=== PATIENT | female | born 1965 | race Caucasian/White ===

== ENCOUNTER 2018-06-02 16:29 | Observation (INO) ==
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
[2018-06-02 17:12] LABS: Basophils # 0.1 K/mcL (0.0-0.2); Basophils % 0.4 %; Eosinophils # 0.1 K/mcL (0.0-0.6); Eosinophils % 0.6 %; Hematocrit 42.9 % (35.3-44.9); Hemoglobin 13.8 g/dL (11.5-15.4); Immature Granulocytes % 0.8 % (0-4); Lymphocytes # 1.6 K/mcL (0.6-4.6); Lymphocytes % 12.6 %; Mean Corpuscular HGB Conc 32.2 g/dL (31.6-35.5); Mean Corpuscular Hemoglobin 27.7 pg (28.0-33.3); Mean Corpuscular Volume 86.1 fL (83.0-100.0); Mean Platelet Volume 9.6 fL (9.4-12.4); Monocytes # 0.7 K/mcL (0.0-1.3); Monocytes % 5.3 %; Neutrophils # 10.1 K/mcL (1.6-8.9); Platelet Count 305 K/mcL (140-400); Red Blood Count 4.98 M/mcL (3.82-4.97); Segmented Neutrophils % 80.3 %
[2018-06-02 17:14] LABS: Bilirubin,Urine Negative (Negative); Blood,Urine Trace-intact (Negative); Clarity,Urine Slightly Cloudy (Clear); Color,Urine Yellow (Yellow); Glucose,Urine (UA) 100 mg/dL (Normal); Ketones,Urine Negative (Negative); Leukocyte Esterase,Urine Trace (Negative); Nitrite,Urine Negative (Negative); Protein,Urine >=300 mg/dL (Neg-Trace); Specific Gravity,Urine 1.025 (1.010-1.025); Urobilinogen,Urine Normal (Normal)
[2018-06-02 17:20] LABS: Prothrombin Time 10.7 Seconds (9.4-12.1)
[2018-06-02 17:22] LABS: Activated Partial Thrombo Time 32.1 Seconds (26.0-36.0)
[2018-06-02 17:26] LABS: Amphetamine Screen,Urine Negative ng/mL (Cutoff=1000); Barbiturate Screen,Urine Negative ng/mL (Cutoff=200); Benzodiazepines Screen,Urine Positive ng/mL (Cutoff=200); Cannabinoid Screen,Urine Negative ng/mL (Cutoff = 50); Cocaine Screen,Urine Negative ng/mL (Cutoff= 300); Opiate Screen,Urine Positive ng/mL (Cutoff=300); Phencyclidine Screen,Urine Negative ng/mL (Cutoff=25)
[2018-06-02 17:28] LABS: Acetaminophen < 10 mcg/mL (10-20); Alanine Aminotransferase 25 Units/L (7-52); Albumin 3.4 g/dL (3.5-5.7); Alkaline Phosphatase 119 Units/L (34-104); Aspartate Amino Transferase 33 Units/L (13-39); BUN/Creatinine Ratio 30 (6-26); Bilirubin,Total 0.2 mg/dL (0.3-1.0); Blood Urea Nitrogen 16 mg/dL (6-20); Calcium 8.5 mg/dL (8.6-10.3); Carbon Dioxide 24 mEq/L (23-29); Chloride 101 mEq/L (98-107); Ethanol < 10 mg/dL (Less than 10); Globulin 3.4 g/dL (2.4-3.5); Glucose 196 mg/dL (70-105); Granular Casts,Urine Moderate per lpf (None Seen); Hyaline Casts,Urine Few per lpf (None-Few); Osmolality,Calculated 281 (280-300); Potassium 3.9 mEq/L (3.5-5.1); Salicylate < 2.5 mg/dL (15.0-30.0); Sodium 132 mEq/L (136-145); Total Protein 6.8 g/dL (6.4-8.9); eGFR For Non-African Americans > 60 (> 60)
[2018-06-02 17:30] LABS: Bacteria,Urine Moderate per hpf (None-Few); RBC,Urine 0-3 per hpf (0-3); Squamous Epithelial Cell,Urine Few per lpf (None-Few); WBC,Urine 30-50 per hpf (0-3)
[2018-06-02] MEDS ORDERED: Ondansetron 4 MG/2 ML VIAL IVP PRN (17:55)
[2018-06-02] MEDS ORDERED: Albuterol 2.5 MG/3 ML NEBULIZER IH PRN (17:55)
[2018-06-02] MEDS ORDERED: Naloxone 0.4 MG/ML INJ IVP PRN (17:55)
[2018-06-02] MEDS ORDERED: *HR* EPINEPHrine 1 MG/ML AMPUL IM PRN (17:55)
[2018-06-02] MEDS ORDERED: Nystatin POWDER 30 GM BOTTLE TP PRN (17:55)
[2018-06-03] MEDS: Sulfamethoxazole/Trimeth DS 1 EACH TABLET PO SCH ×2 (01:00→07:51)
[2018-06-03] MEDS: ALPRAZolam 1 MG TABLET PO SCH ×3 (01:00→13:16)
[2018-06-03] MEDS: Baclofen 10 MG TABLET PO SCH ×2 (01:00→07:50)
[2018-06-03] MEDS: hydrALAZINE 25 MG TABLET PO SCH ×2 (01:00→07:49)
[2018-06-03 06:21] VITALS: BP 99/61
[2018-06-03] MEDS ORDERED: Folic Acid 1 MG TABLET PO SCH (09:00)
[2018-06-03] MEDS ORDERED: Cholecalciferol (D-3) 1,000 UNIT TABLET PO SCH (09:00)
[2018-06-03] MEDS ORDERED: Aspirin 325 MG TABLET PO SCH (09:00)
[2018-06-03] MEDS ORDERED: Loratadine 10 MG TABLET PO SCH (09:00)
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
--- NOTE | 2018-06-03 10:13 | Discharge Summary ---
Orders not resulted at time of discharge: Pending orders 06/02/18 17:02 ECG 12 lead ECG [ECG] Stat 06/02/18 17:07 Culture,Urine [RM] Stat Date of Encounter: 06/03/18 Time of Encounter: 09:25 - Discharge Diagnosis (1) Altered mental status Priority: Primary Status: Resolved Qualifiers: Altered mental status type: unspecified Qualified Code(s): R41.82 - Altered mental status, unspecified Hospital course: Ms. Palencia is a 52 year old female who came to emergency room after she states she took a "headache pill" (name unknown) at home and developed mental status changes. She does not recall the incident well. Emergency room report states she required bagging. She was evaluated emergency room and was felt deserve admission to [facility] for observation ongoing care needs. Initial orders were written by the emergency room physician. I saw her the morning of June 03 and performed a history physical and discharge. When I saw her she stated she felt back to her baseline and wished to be discharged home. She reported the remaining medication possibly causing her mental status change had been discarded by her . She will follow with her PCP Karey Gomez CNP within 1 week. - Time Spent with Patient Total time spent providing and/or coordinating discharge services: - Discharge Medications Prescriptions: Continue Aspirin 325 mg PO DAILY tablet DULoxetine [Cymbalta] 60 mg PO DAILY capsule. Folic Acid 1 mg PO DAILY Loratadine [Claritin] 10 mg PO DAILY Levothyroxine [Synthroid] 125 mcg PO QAM Ondansetron [Zofran] 4 mg PO DAILY PRN PRN Reason: Nausea Docusate [Colace] 100 mg PO DAILY OxyCODONE/APAP 10/325 [Percocet 10/325 MG] 1 tab PO Q6HR PRN PRN Reason: Severe Pain Oxygen 2 - 2.5 l NS AD Albuterol Neb [Proventil Neb] 2.5 mg IH Q4HR PRN PRN Reason: Wheezing Nystatin POWDER [Nystop] 1 appl TP BID PRN PRN Reason: Rash Ferrous Sulfate [Iron] 325 mg PO DAILY Albuterol Sulfate [Albuterol Inhaler] 2 puff IH Q4HR PRN PRN Reason: Shortness Of Breath ALPRAZolam [Xanax 1 MG Tablet] 1 mg PO QID Omeprazole [PriLOSEC] 20 mg PO DAILY Baclofen [Lioresal] 10 mg PO TID Paroxetine HCl [Paxil] 10 mg PO DAILY Meclizine HCl [Verticalm] 25 mg PO BID PRN PRN Reason: Dizziness EPINEPHrine [Epipen] 0.3 mg IM ONCE PRN PRN Reason: Anaphylaxis hydrALAZINE [HydrALAZINE] 25 mg PO BID Metoprolol [Lopressor] 25 mg PO BID #14 tablet Cholecalciferol (Vitamin D3) [Vitamin D3] 2,000 unit PO DAILY Phenazopyridine HCl [Pyridium] 200 mg PO TIDAC #10 tab Sulfamethoxazole/Trimeth DS [Bactrim Ds] 1 each PO BID #20 tablet Ondansetron ODT [Zofran ODT] 4 mg SL Q6HR #10 tab.rapdis Home Medications: Cholecalciferol (Vitamin D3) [Vitamin D3] 2,000 unit PO DAILY 01/24/15 [History] Aspirin 325 mg PO DAILY tablet 03/06/15 [Rx] DULoxetine [Cymbalta] 60 mg PO DAILY capsule. 03/06/15 [Rx] Folic Acid 1 mg PO DAILY 05/30/15 [History] Levothyroxine [Synthroid] 125 mcg PO QAM 05/30/15 [History] Loratadine [Claritin] 10 mg PO DAILY 05/30/15 [History] Ondansetron [Zofran] 4 mg PO DAILY PRN 05/30/15 [History] Docusate [Colace] 100 mg PO DAILY 08/29/15 [History] OxyCODONE/APAP 10/325 [Percocet 10/325 MG] 1 tab PO Q6HR PRN 04/29/16 [History] Oxygen 2 - 2.5 l NS AD 04/30/16 [History] Albuterol Neb [Proventil Neb] 2.5 mg IH Q4HR PRN 06/18/16 [History] Ferrous Sulfate [Iron] 325 mg PO DAILY 08/27/16 [History] Nystatin POWDER [Nystop] 1 appl TP BID PRN 08/27/16 [History] Albuterol Sulfate [Albuterol Inhaler] 2 puff IH Q4HR PRN 12/24/16 [History] ALPRAZolam [Xanax 1 MG Tablet] 1 mg PO QID 04/22/17 [History] Baclofen [Lioresal] 10 mg PO TID 05/28/17 [History] EPINEPHrine [Epipen] 0.3 mg IM ONCE PRN 05/28/17 [History] Meclizine HCl [Verticalm] 25 mg PO BID PRN 05/28/17 [History] Omeprazole [PriLOSEC] 20 mg PO DAILY 05/28/17 [History] Paroxetine HCl [Paxil] 10 mg PO DAILY 05/28/17 [History] hydrALAZINE [HydrALAZINE] 25 mg PO BID 07/29/17 [History] Metoprolol [Lopressor] 25 mg PO BID #14 tablet 08/18/17 [Rx] Ondansetron ODT [Zofran ODT] 4 mg SL Q6HR #10 tab.rapdis 05/20/18 [Rx] Phenazopyridine HCl [Pyridium] 200 mg PO TIDAC #10 tab 05/20/18 [Rx] Sulfamethoxazole/Trimeth DS [Bactrim Ds] 1 each PO BID #20 tablet 05/20/18 [Rx] Allergies/Adverse Reactions: Allergy/AdvReac Type Severity Reaction Status Date / Time Amoxicillin [From Augmentin] Allergy Hives Verified 05/22/18 15:49 cilastatin [From Primaxin] Allergy Anaphylaxis Verified 05/22/18 15:49 ciprofloxacin Allergy Hives Verified 05/22/18 15:49 clavulanic acid Allergy Hives Verified 05/22/18 15:49 [From Augmentin] doxycycline Allergy Hives Verified 05/22/18 15:49 imipenem Allergy Rash Verified 05/22/18 15:49 ketorolac [From Toradol] Allergy Nausea Verified 05/22/18 15:49 levofloxacin Allergy Anaphylaxis Verified 05/22/18 15:49 metronidazole [From Flagyl] Allergy Hives Verified 05/22/18 15:49 morphine Allergy Hives Verified 05/22/18 15:49 naproxen Allergy Hives Verified 05/22/18 15:49 nitrofurantoin Allergy Hives Verified 05/22/18 15:49 piperacillin [From Zosyn] Allergy Rash Verified 05/22/18 15:49 tazobactam Allergy Irritable Verified 05/22/18 15:49 Ticarcillin Allergy Hives Verified 05/22/18 15:49 tramadol Allergy Vomiting Verified 05/22/18 15:49 vancomycin Allergy Hives Verified 05/22/18 15:49 cefepime AdvReac Intermediate Itching Verified 05/22/18 15:49 baclofen AdvReac Itching Verified 05/22/18 15:49 methylprednisolone AdvReac Rash Verified 05/22/18 15:49 [From Solu-Medrol] Date of admission: 06/02/18 17:53 Primary care physician: Karey Gomez CNP - Constitutional Vitals: Temp Pulse Resp BP Pulse Ox 98.3 F 66 18 99/61 96 06/03/18 06:18 06/03/18 06:18 06/03/18 06:18 06/03/18 06:18 06/03/18 06:18 - Patient Status Disposition: Home, Self-Care - Discharge Instructions Follow Up With: Karey Gomez CNP [Primary Care Provider] - 1 week - Diet and Activity Activity: resume usual activities as tolerated Diet: advance to your usual diet
--- NOTE | 2018-06-03 17:24 | Electrocardiograph Report ---
[place] [id number] Test Date: 2018-06-02 Pat Name: Monisha Palencia Department: EDP-16 Room: [facility] Gender: F [employer]: : [id number] Requested By: Rocío Moreno Order Number: [id number] Reading MD: Nhung Fu Measurements Intervals [place] Rate: 90 P: 57 TN: 206 QRS: 42 QRSD: 94 T: 48 QT: 374 QTc: 458 Interpretive Statements Sinus rhythm Borderline prolonged TN interval Probable left atrial enlargement Electronically Signed On 06-03-2018 17:23:19 EDT by Nhung Fu
== END 2018-06-03 14:20 | disposition home or self-care (01) ==
LOC: INPPIK 16:29 → EMEROOPIK 16:29 → INPPIK 18:25
PROVIDERS: ADMIT Internal Medicine; ATTEND Internal Medicine

== ENCOUNTER 2019-01-31 11:38 | Observation (INO) ==
[2019-01-31] MEDS ORDERED: 0.9 % Sodium Chloride 1,000 ML IVC ONE (12:07)
[2019-01-31 12:20] LABS: Bilirubin,Urine Negative (Negative); Blood,Urine Trace-intact (Negative); Clarity,Urine Turbid (Clear); Color,Urine Yellow (Yellow); Glucose,Urine (UA) Normal (Normal); Ketones,Urine Negative (Negative); Leukocyte Esterase,Urine Large (Negative); Nitrite,Urine Positive (Negative); PH,Urine >=9.0 pH Units (5.0-8.0); Protein,Urine Trace mg/dL (Neg-Trace); Urobilinogen,Urine Normal (Normal)
[2019-01-31 12:28] LABS: Bacteria,Urine Many per hpf (None-Few); Mucus,Urine Few (Few); RBC,Urine 0-3 per hpf (0-3); Squamous Epithelial Cell,Urine Few per lpf (None-Few); Triple Phosphate Crystal,Urine Present; WBC,Urine 30-50 per hpf (0-3)
[2019-01-31 12:32] LABS: Basophils # 0.1 K/mcL (0.0-0.2); Basophils % 0.6 %; Eosinophils # 0.1 K/mcL (0.0-0.6); Eosinophils % 0.7 %; Hematocrit 42.3 % (35.3-44.9); Hemoglobin 13.8 g/dL (11.5-15.4); Immature Granulocytes % 0.6 % (0-4); Lymphocytes % 19.9 %; Mean Corpuscular HGB Conc 32.6 g/dL (31.6-35.5); Mean Corpuscular Hemoglobin 28.6 pg (28.0-33.3); Mean Corpuscular Volume 87.6 fL (83.0-100.0); Mean Platelet Volume 9.5 fL (9.4-12.4); Monocytes # 0.6 K/mcL (0.0-1.3); Monocytes % 5.5 %; Neutrophils # 7.3 K/mcL (1.6-8.9); Nucleated Red Blood Cells 0.3 /100 WBC (0); Platelet Count 275 K/mcL (140-400); Red Blood Count 4.83 M/mcL (3.82-4.97); Red Cell Distribution Width 14.3 % (11.5-14.5); Segmented Neutrophils % 72.7 %; White Blood Count 10.1 K/mcL (4.3-11.1)
[2019-01-31 12:39] LABS: Prothrombin Time 11.4 Seconds (9.4-12.1)
[2019-01-31 12:51] LABS: Troponin I < 0.03 ng/mL (< 0.04)
[2019-01-31 12:52] LABS: Alanine Aminotransferase 8 Units/L (7-52); Albumin 3.7 g/dL (3.5-5.7); Albumin/Globulin Ratio 1.1 (1.1-2.2); Alkaline Phosphatase 99 Units/L (34-104); Aspartate Amino Transferase 8 Units/L (13-39); BUN/Creatinine Ratio 24 (6-26); Bilirubin,Indirect 0.2 mg/dL (0.0-1.0); Bilirubin,Total 0.2 mg/dL (0.3-1.0); Blood Urea Nitrogen 12 mg/dL (6-20); Calcium 8.9 mg/dL (8.6-10.3); Carbon Dioxide 31 mEq/L (23-29); Chloride 97 mEq/L (98-107); Globulin 3.4 g/dL (2.4-3.5); Glucose 121 mg/dL (70-105); Osmolality,Calculated 275 (280-300); Potassium 4.4 mEq/L (3.5-5.1); Sodium 132 mEq/L (136-145); Total Protein 7.1 g/dL (6.4-8.9); eGFR For African Americans > 60 (> 60); eGFR For Non-African Americans > 60 (> 60)
[2019-01-31 13:04] LABS: Lipase 10 Units/L (11-82)
[2019-01-31] MEDS ORDERED: Albuterol 2.5 MG/3 ML NEBULIZER IH PRN (14:07)
[2019-01-31] MEDS ORDERED: Ondansetron 4 MG/2 ML VIAL IVP PRN (14:07)
[2019-01-31] MEDS ORDERED: Naloxone 0.4 MG/ML INJ IVP PRN (14:07)
[2019-01-31] MEDS: 0.9 % Sodium Chloride 1,000 ML IVC SCH (15:52)
[2019-01-31] MEDS: *HR* OxyCODONE/APAP 10/325 TABLET PO PRN ×2 (15:57→21:24)
[2019-01-31] MEDS: ALPRAZolam 1 MG TABLET PO SCH ×2 (17:13→20:45)
[2019-01-31] MEDS: hydrALAZINE 25 MG TABLET PO SCH (20:46)
[2019-01-31] MEDS: Nystatin Cream 15 GM TUBE TP SCH (20:46)
[2019-02-01] MEDS: 0.9 % Sodium Chloride 1,000 ML IVC SCH (01:41)
[2019-02-01] MEDS ORDERED: *HR* OxyCODONE/APAP 10/325 TABLET PO SCH (01:45)
[2019-02-01] MEDS: *HR* OxyCODONE/APAP 10/325 TABLET PO PRN ×2 (02:37→06:26)
[2019-02-01 07:42] LABS: Hematocrit 40.9 % (35.3-44.9); Hemoglobin 13.3 g/dL (11.5-15.4); Mean Corpuscular HGB Conc 32.5 g/dL (31.6-35.5); Mean Corpuscular Hemoglobin 28.7 pg (28.0-33.3); Mean Corpuscular Volume 88.3 fL (83.0-100.0); Mean Platelet Volume 9.4 fL (9.4-12.4); Platelet Count 253 K/mcL (140-400); Red Blood Count 4.63 M/mcL (3.82-4.97); Red Cell Distribution Width 14.7 % (11.5-14.5); White Blood Count 7.9 K/mcL (4.3-11.1)
[2019-02-01 07:53] LABS: BUN/Creatinine Ratio 20 (6-26); Blood Urea Nitrogen 8 mg/dL (6-20); Calcium 8.7 mg/dL (8.6-10.3); Carbon Dioxide 30 mEq/L (23-29); Chloride 101 mEq/L (98-107); Glucose 87 mg/dL (70-105); Osmolality,Calculated 278 (280-300); Sodium 135 mEq/L (136-145); eGFR For African Americans > 60 (> 60); eGFR For Non-African Americans > 60 (> 60)
[2019-02-01] MEDS: hydrALAZINE 25 MG TABLET PO SCH (08:29)
[2019-02-01] MEDS: ALPRAZolam 1 MG TABLET PO SCH (08:29)
[2019-02-01] MEDS: Nystatin Cream 15 GM TUBE TP SCH ×2 (08:35→08:46)
[2019-02-01] MEDS ORDERED: Loratadine 10 MG TABLET PO SCH (09:00)
[2019-02-01] MEDS ORDERED: cefTRIAXone 1,000 MG in 0.9 % Sodium Chloride Mini Bag 100 ML IVPB SCH (09:00)
[2019-02-01] MEDS ORDERED: Aspirin 325 MG TABLET PO SCH (09:00)
[2019-02-01] MEDS ORDERED: Folic Acid 1 MG TABLET PO SCH (09:00)
[2019-02-01 10:41] VITALS: BP 142/80
[2019-02-01 19:08] LABS: Acinetobacter baumannii by PCR Not Detected (Not Detect); Candida albicans by PCR Not Detected (Not Detect); Candida glabrata by PCR Not Detected (Not Detect); Candida krusei by PCR Not Detected (Not Detect); Candida parapsilosis by PCR Not Detected (Not Detect); Candida tropicalis by PCR Not Detected (Not Detect); Enterobacter cloacae Cmplx PCR Not Detected (Not Detect); Enterobacteriaceae by PCR Not Detected (Not Detect); Enterococcus by PCR Not Detected (Not Detect); Escherichia coli by PCR Not Detected (Not Detect); Klebsiella oxytoca by PCR Not Detected (Not Detect); Klebsiella pneumoniae by PCR Not Detected (Not Detect); Proteus by PCR Not Detected (Not Detect); Pseudomonas aeruginosa by PCR Not Detected (Not Detect); Serratia marcescens by PCR Not Detected (Not Detect); Staphylococcus aureus by PCR Not Detected (Not Detect); Staphylococcus by PCR DETECTED (Not Detect); Streptococcus agalactiae(B)PCR Not Detected (Not Detect); Streptococcus by PCR Not Detected (Not Detect); Streptococcus pneumoniae PCR Not Detected (Not Detect); Streptococcus pyogenes (A) PCR Not Detected (Not Detect); mecA Methicillin-Resist Gene DETECTED (Not Detect)
== END 2019-02-01 11:30 | disposition home or self-care (01) ==
LOC: INPPIK 11:38 → EMEROOPIK 11:38 → INPPIK 14:35
PROVIDERS: ADMIT Internal Medicine; ATTEND Internal Medicine

== ENCOUNTER 2020-04-16 18:27 | Observation (INO) ==
[2020-04-16] MEDS ORDERED: *HR* Promethazine 25 MG/ML VIAL IM ONE (18:52)
[2020-04-16] MEDS ORDERED: *HR* LORazepam 2 MG/ML VIAL IM STA (18:52)
[2020-04-16 19:16] LABS: Basophils # 0.1 K/mcL (0.0-0.2); Basophils % 0.5 %; Eosinophils # 0.1 K/mcL (0.0-0.6); Eosinophils % 0.3 %; Immature Granulocytes % 1.6 % (0-4); Lymphocytes # 2.9 K/mcL (0.6-4.6); Lymphocytes % 16.5 %; Mean Corpuscular HGB Conc 31.3 g/dL (31.6-35.5); Mean Corpuscular Hemoglobin 22.3 pg (28.0-33.3); Mean Corpuscular Volume 71.3 fL (83.0-100.0); Mean Platelet Volume 8.4 fL (9.4-12.4); Monocytes % 5.5 %; Platelet Count 1077 K/mcL (140-400); Red Blood Count 4.49 M/mcL (3.82-4.97); Red Cell Distribution Width 17.6 % (11.5-14.5); Segmented Neutrophils % 75.6 %; White Blood Count 17.8 K/mcL (4.3-11.1)
[2020-04-16 19:19] LABS: Neutrophils # 13.5 K/mcL (1.6-8.9)
[2020-04-16 19:36] LABS: Bilirubin,Urine Negative (Negative); Blood,Urine Negative (Negative); Color,Urine Yellow (Yellow); Glucose,Urine (UA) Normal (Normal); Ketones,Urine Negative (Negative); Leukocyte Esterase,Urine Trace (Negative); Nitrite,Urine Positive (Negative); PH,Urine 6.5 pH Units (5.0-8.0); Protein,Urine Negative (Neg-Trace); Specific Gravity,Urine 1.015 (1.010-1.025); Urobilinogen,Urine Normal (Normal)
[2020-04-16 19:40] LABS: Alanine Aminotransferase 16 Units/L (7-52); Albumin 3.2 g/dL (3.5-5.7); Albumin/Globulin Ratio 0.7 (1.1-2.2); Alkaline Phosphatase 223 Units/L (34-104); Aspartate Amino Transferase 21 Units/L (13-39); BUN/Creatinine Ratio 37 (6-26); Bilirubin,Total 0.2 mg/dL (0.3-1.0); Blood Urea Nitrogen 19 mg/dL (6-20); Calcium 8.7 mg/dL (8.6-10.3); Carbon Dioxide 23 mEq/L (23-29); Chloride 89 mEq/L (98-107); Globulin 4.5 g/dL (2.4-3.5); Glucose 141 mg/dL (70-105); Osmolality,Calculated 259 (280-300); Potassium 4.5 mEq/L (3.5-5.1); Sodium 122 mEq/L (136-145); Total Protein 7.7 g/dL (6.4-8.9); eGFR For African Americans > 60 (> 60); eGFR For Non-African Americans > 60 (> 60)
[2020-04-16 19:41] LABS: Clarity,Urine Slightly Cloudy (Clear)
[2020-04-16 19:48] LABS: Bacteria,Urine Many per hpf (None-Few); Squamous Epithelial Cell,Urine Few per hpf (None-Few)
[2020-04-16 19:49] LABS: RBC,Urine 0-3 per hpf (0-3); Transitional Epi Cells,Urine Few per hpf (None-Few)
[2020-04-16] MEDS ORDERED: 0.9 % Sodium Chloride 1,000 ML IVC SCH ×2 (20:45→23:06)
[2020-04-16] MEDS ORDERED: cefTRIAXone 1,000 MG in 0.9 % Sodium Chloride Mini Bag 100 ML IVPB ONE (21:02)
[2020-04-16] MEDS ORDERED: Acetaminophen/Butalbital/CaffeineTABLET PO PRN (23:06)
[2020-04-16] MEDS ORDERED: Naloxone 0.4 MG/ML INJ IVP PRN (23:06)
[2020-04-16] MEDS ORDERED: Nystatin POWDER 30 GM BOTTLE TP PRN (23:06)
[2020-04-16] MEDS ORDERED: Ondansetron ODT 4 MG TAB.RAPDIS PO PRN (23:06)
[2020-04-16] MEDS ORDERED: hydrALAZINE 25 MG TABLET PO PRN (23:06)
[2020-04-16] MEDS ORDERED: Albuterol 2.5 MG/3 ML NEBULIZER IH PRN (23:06)
[2020-04-17] MEDS: *HR* OxyCODONE/APAP 10/325 TABLET PO PRN ×2 (00:15→06:17)
[2020-04-17 02:25] LABS: Basophils # 0.1 K/mcL (0.0-0.2); Basophils % 0.5 %; Eosinophils # 0.1 K/mcL (0.0-0.6); Eosinophils % 0.6 %; Hematocrit 34.3 % (35.3-44.9); Hemoglobin 10.9 g/dL (11.5-15.4); Immature Granulocytes % 2.1 % (0-4); Lymphocytes # 4.3 K/mcL (0.6-4.6); Lymphocytes % 28.6 %; Mean Corpuscular HGB Conc 31.8 g/dL (31.6-35.5); Mean Corpuscular Hemoglobin 22.9 pg (28.0-33.3); Mean Corpuscular Volume 72.1 fL (83.0-100.0); Mean Platelet Volume 8.5 fL (9.4-12.4); Monocytes % 6.5 %; Neutrophils # 9.2 K/mcL (1.6-8.9); Platelet Count 1086 K/mcL (140-400); Red Blood Count 4.76 M/mcL (3.82-4.97); Red Cell Distribution Width 17.8 % (11.5-14.5); Segmented Neutrophils % 61.7 %; White Blood Count 14.9 K/mcL (4.3-11.1)
[2020-04-17] MEDS ORDERED: ALPRAZolam 1 MG TABLET PO ONE (02:27)
[2020-04-17 02:44] LABS: BUN/Creatinine Ratio 29 (6-26); Blood Urea Nitrogen 17 mg/dL (6-20); Calcium 9.2 mg/dL (8.6-10.3); Carbon Dioxide 25 mEq/L (23-29); Chloride 93 mEq/L (98-107); Glucose 141 mg/dL (70-105); Magnesium 1.8 mg/dL (1.6-2.6); Osmolality,Calculated 272 (280-300); Phosphorous 4.4 mg/dL (2.7-4.5); Potassium 4.1 mEq/L (3.5-5.1); Sodium 129 mEq/L (136-145); eGFR For African Americans > 60 (> 60); eGFR For Non-African Americans > 60 (> 60)
[2020-04-17] MEDS ORDERED: Furosemide 40 MG TABLET PO SCH (08:00)
[2020-04-17] MEDS ORDERED: Piperacillin/Tazobactam 3.375 GM in 0.9 % Sodium Chloride Mini Bag 100 ML IVPB SCH (08:10)
[2020-04-17] MEDS ORDERED: 0.9 % Sodium Chloride 1,000 ML IV ONE (08:49)
[2020-04-17] MEDS ORDERED: Loratadine 10 MG TABLET PO SCH (09:00)
[2020-04-17] MEDS ORDERED: ALPRAZolam 1 MG TABLET PO SCH (09:00)
[2020-04-17] MEDS ORDERED: Aspirin 325 MG TABLET PO SCH (09:00)
[2020-04-17] MEDS ORDERED: PARoxetine 20 MG TABLET PO SCH (09:00)
[2020-04-17] MEDS ORDERED: Lactobacillus 1 EACH CAP.SPRINK PO SCH (09:00)
[2020-04-17] MEDS ORDERED: predniSONE 20 MG TABLET PO SCH (09:00)
[2020-04-17] MEDS ORDERED: Norepinephrine 4 MG in D5% in Water 250 ML IVC SCH (10:00)
[2020-04-17 12:01] VITALS: BP 94/49
== END 2020-04-17 12:05 | disposition short-term general hospital (02) ==
LOC: EMEROOPIK 18:27 → INPPIK 18:27 → SUATTDRO 21:22 → INPPIK 22:45
PROVIDERS: ADMIT Emergency Medicine; ATTEND Family Medicine

== ENCOUNTER 2020-08-27 15:36 | Observation (INO) ==
[2020-08-27] MEDS ORDERED: Ondansetron ODT 4 MG TAB.RAPDIS SL ONE (15:53)
[2020-08-27] MEDS: *HR* OxyCODONE/APAP 5/325 TABLET PO ONE (16:02)
[2020-08-27 16:09] LABS: Basophils # 0.1 K/mcL (0.0-0.2); Basophils % 0.6 %; Eosinophils # 0.3 K/mcL (0.0-0.6); Eosinophils % 1.6 %; Hematocrit 41.5 % (35.3-44.9); Hemoglobin 13.8 g/dL (11.5-15.4); Lymphocytes # 3.7 K/mcL (0.6-4.6); Lymphocytes % 20.4 %; Mean Corpuscular HGB Conc 33.3 g/dL (31.6-35.5); Mean Corpuscular Hemoglobin 25.4 pg (28.0-33.3); Mean Corpuscular Volume 76.3 fL (83.0-100.0); Mean Platelet Volume 8.6 fL (9.4-12.4); Monocytes # 0.8 K/mcL (0.0-1.3); Monocytes % 4.6 %; Neutrophils # 12.6 K/mcL (1.6-8.9); Platelet Count 500 K/mcL (140-400); Red Blood Count 5.44 M/mcL (3.82-4.97); Red Cell Distribution Width 16.2 % (11.5-14.5); Segmented Neutrophils % 69.8 %; White Blood Count 18.1 K/mcL (4.3-11.1)
[2020-08-27 16:26] LABS: BUN/Creatinine Ratio 46 (6-26); Blood Urea Nitrogen 26 mg/dL (6-20); Calcium 8.9 mg/dL (8.6-10.3); Carbon Dioxide 28 mEq/L (23-29); Chloride 88 mEq/L (98-107); Glucose 95 mg/dL (70-105); Osmolality,Calculated 265 (280-300); Potassium 4.5 mEq/L (3.5-5.1); Sodium 125 mEq/L (136-145); eGFR For African Americans > 60 (> 60); eGFR For Non-African Americans > 60 (> 60)
[2020-08-27] MEDS ORDERED: 0.9 % Sodium Chloride 500 ML IVC ONE (16:44)
[2020-08-27] MEDS ORDERED: Ipratropium/Albuterol Neb 3 ML IH ONE (16:59)
[2020-08-27] MEDS: 0.9 % Sodium Chloride 1,000 ML IVC SCH (17:43)
[2020-08-27] MEDS ORDERED: Mag Hydrox/Al Hydrox/Simeth 30 ML UDC PO PRN (17:48)
[2020-08-27] MEDS ORDERED: Acetaminophen 325 MG TABLET PO PRN (17:48)
[2020-08-27] MEDS ORDERED: Naloxone 0.4 MG/ML INJ IVP PRN (17:48)
[2020-08-27] MEDS ORDERED: MOM Conc 10 ML UD.LIQ PO PRN (17:48)
[2020-08-27] MEDS ORDERED: *HR* LORazepam 1 MG TABLET PO PRN (17:53)
[2020-08-27] MEDS ORDERED: Fosfomycin Tromethamine 3 GM Packet PO SCH (18:00)
[2020-08-27] MEDS: Ondansetron 4 MG/2 ML VIAL IVP PRN (18:33)
[2020-08-27] MEDS: Ketorolac 15 MG/ML VIAL IVP PRN (18:40)
[2020-08-27] MEDS ORDERED: *HR* LORazepam 1 MG TABLET PO SCH (19:00)
[2020-08-27 20:48] LABS: Bilirubin,Urine Negative (Negative); Blood,Urine Negative (Negative); Clarity,Urine Clear (Clear); Glucose,Urine (UA) Normal (Normal); Ketones,Urine Negative (Negative); Leukocyte Esterase,Urine Negative (Negative); Nitrite,Urine Negative (Negative); Protein,Urine Negative (Neg-Trace); Specific Gravity,Urine <= 1.005 (1.010-1.025); Urobilinogen,Urine Normal (Normal)
[2020-08-27 21:26] LABS: Color,Urine Light Yellow (Yellow)
[2020-08-27] MEDS: Ipratropium/Albuterol Neb 3 ML IH PRN (21:46)
[2020-08-28] MEDS: 0.9 % Sodium Chloride 1,000 ML IVC SCH (01:01)
[2020-08-28] MEDS: Ketorolac 15 MG/ML VIAL IVP PRN ×3 (01:05→14:08)
[2020-08-28] MEDS: Ondansetron 4 MG/2 ML VIAL IVP PRN ×2 (02:58→12:38)
[2020-08-28] MEDS: Ipratropium/Albuterol Neb 3 ML IH PRN ×3 (03:11→12:08)
[2020-08-28 07:34] LABS: Basophils # 0.1 K/mcL (0.0-0.2); Basophils % 0.9 %; Eosinophils # 0.3 K/mcL (0.0-0.6); Hematocrit 37.9 % (35.3-44.9); Hemoglobin 12.2 g/dL (11.5-15.4); Immature Granulocytes % 3.8 % (0-4); Lymphocytes # 3.4 K/mcL (0.6-4.6); Lymphocytes % 24.5 %; Mean Corpuscular HGB Conc 32.2 g/dL (31.6-35.5); Mean Corpuscular Hemoglobin 24.9 pg (28.0-33.3); Mean Corpuscular Volume 77.3 fL (83.0-100.0); Monocytes # 0.7 K/mcL (0.0-1.3); Monocytes % 5.3 %; Neutrophils # 8.7 K/mcL (1.6-8.9); Platelet Count 434 K/mcL (140-400); Red Cell Distribution Width 16.5 % (11.5-14.5); Segmented Neutrophils % 63.5 %; White Blood Count 13.7 K/mcL (4.3-11.1)
[2020-08-28 07:54] LABS: BUN/Creatinine Ratio 41 (6-26); Blood Urea Nitrogen 25 mg/dL (6-20); Calcium 8.4 mg/dL (8.6-10.3); Carbon Dioxide 26 mEq/L (23-29); Chloride 95 mEq/L (98-107); Glucose 114 mg/dL (70-105); Osmolality,Calculated 273 (280-300); Potassium 3.7 mEq/L (3.5-5.1); Sodium 129 mEq/L (136-145); eGFR For African Americans > 60 (> 60); eGFR For Non-African Americans > 60 (> 60)
[2020-08-28] MEDS ORDERED: *HR* LORazepam 1 MG TABLET PO SCH (08:00)
[2020-08-28] MEDS ORDERED: PARoxetine 20 MG TABLET PO SCH (09:00)
[2020-08-28] MEDS ORDERED: Aspirin 325 MG TABLET PO SCH (09:00)
[2020-08-28] MEDS ORDERED: MAGNESIUM OXIDE PO SCH (09:00)
[2020-08-28] MEDS ORDERED: Folic Acid 1 MG TABLET PO SCH (09:00)
[2020-08-28] MEDS ORDERED: CALCIUM CARBONATE PO SCH (09:00)
[2020-08-28] MEDS ORDERED: Fluticasone Propionate Nasal 50 MCG/SPRAY BOTTLE NS SCH (09:00)
[2020-08-28] MEDS ORDERED: ZINC SULFATE PO SCH (09:00)
[2020-08-28] MEDS ORDERED: Potassium Chloride Elixir 20 MEQ/15 ML UDC PO SCH (09:00)
[2020-08-28] MEDS ORDERED: Lactobacillus 1 EACH CAP.SPRINK PO SCH (09:00)
[2020-08-28] MEDS ORDERED: Loratadine 10 MG TABLET PO SCH (09:00)
[2020-08-28] MEDS ORDERED: Cholecalciferol (D-3) 1,000 UNIT (25MCG) TABLET PO SCH (09:00)
[2020-08-28] MEDS ORDERED: Ascorbic Acid 500 MG TABLET PO SCH (09:00)
[2020-08-28 10:22] VITALS: BP 131/80
[2020-08-28 12:14] LABS: BUN/Creatinine Ratio 41 (6-26); Blood Urea Nitrogen 24 mg/dL (6-20); Calcium 8.5 mg/dL (8.6-10.3); Carbon Dioxide 27 mEq/L (23-29); Chloride 97 mEq/L (98-107); Glucose 110 mg/dL (70-105); Osmolality,Calculated 273 (280-300); Potassium 4.1 mEq/L (3.5-5.1); Sodium 129 mEq/L (136-145); eGFR For African Americans > 60 (> 60); eGFR For Non-African Americans > 60 (> 60)
[2020-08-28] MEDS ORDERED: *HR* OxyCODONE/APAP 5/325 TABLET PO ONE (12:28)
[2020-08-28] MEDS ORDERED: 0.9 % Sodium Chloride 1,000 ML IVC SCH (12:30)
[2020-08-28] MEDS: *HR* OxyCODONE/APAP 5/325 TABLET PO ONE (15:56)
== END 2020-08-28 16:50 | disposition home or self-care (01) ==
LOC: INPPIK 15:36 → EMEROOPIK 15:36 → INPPIK 17:34
PROVIDERS: ADMIT Family Medicine; ATTEND Family Medicine

== ENCOUNTER 2021-07-12 11:18 | Inpatient (IN) ==
[2021-07-12] MEDS ORDERED: Isovue-370 500 ML BOTTLE IVP ONE (11:54)
[2021-07-12] MEDS ORDERED: Ondansetron 4 MG/2 ML VIAL IVP ONE (12:01)
[2021-07-12 12:16] LABS: ABG Base Excess -1 mEq/L (-2 to 3); ABG HCO3 27 mEq/L (21-27); ABG Oxygen Saturation 76 % (95-98); ABG PCO2 56 mmHg (35-45); ABG PH 7.29 pH Units (7.32-7.45); ABG TCO2 29 mEq/L (20-26)
[2021-07-12 12:24] LABS: Basophils # 0.1 K/mcL (0.0-0.2); Basophils % 0.7 %; Eosinophils # 0.2 K/mcL (0.0-0.6); Eosinophils % 1.3 %; Hematocrit 42.3 % (35.3-44.9); Hemoglobin 12.2 g/dL (11.5-15.4); Immature Granulocytes % 3.2 % (0-4); Lymphocytes # 2.4 K/mcL (0.6-4.6); Lymphocytes % 17.3 %; Mean Corpuscular HGB Conc 28.8 g/dL (31.6-35.5); Mean Corpuscular Hemoglobin 23.8 pg (28.0-33.3); Mean Corpuscular Volume 82.6 fL (83.0-100.0); Mean Platelet Volume 9.1 fL (9.4-12.4); Monocytes # 0.8 K/mcL (0.0-1.3); Monocytes % 6.1 %; Neutrophils # 9.8 K/mcL (1.6-8.9); Nucleated Red Blood Cells 0.1 /100 WBC (0); Platelet Count 371 K/mcL (140-400); Red Blood Count 5.12 M/mcL (3.82-4.97); Red Cell Distribution Width 17.2 % (11.5-14.5); Segmented Neutrophils % 71.4 %; White Blood Count 13.7 K/mcL (4.3-11.1)
[2021-07-12 12:32] LABS: Prothrombin Time 10.7 Seconds (9.4-12.1)
[2021-07-12 12:35] LABS: Activated Partial Thrombo Time 39.1 Seconds (26.0-36.0)
[2021-07-12 12:39] LABS: ABG PO2 47 mmHg (85-104)
[2021-07-12 12:42] LABS: BUN/Creatinine Ratio 40 (6-26); Blood Urea Nitrogen 33 mg/dL (6-20); Calcium 9.6 mg/dL (8.6-10.3); Carbon Dioxide 23 mEq/L (23-29); Chloride 94 mEq/L (98-107); Glucose 118 mg/dL (70-105); Osmolality,Calculated 274 (280-300); Potassium 4.9 mEq/L (3.5-5.1); Sodium 128 mEq/L (136-145); eGFR For African Americans > 60 (> 60); eGFR For Non-African Americans > 60 (> 60)
[2021-07-12 12:43] LABS: Troponin I < 0.03 ng/mL (< 0.04)
[2021-07-12 14:05] LABS: Platelet Estimate Normal (Normal)
[2021-07-12 15:02] LABS: Amphetamine Screen,Urine Negative ng/mL (Cutoff=1000); Barbiturate Screen,Urine Negative ng/mL (Cutoff=200); Benzodiazepines Screen,Urine Positive ng/mL (Cutoff=200); Cannabinoid Screen,Urine Negative ng/mL (Cutoff = 50); Cocaine Screen,Urine Negative ng/mL (Cutoff= 300); Opiate Screen,Urine Positive ng/mL (Cutoff=300); Phencyclidine Screen,Urine Negative ng/mL (Cutoff=25)
[2021-07-12] MEDS ORDERED: Naloxone 0.4 MG/ML INJ IVP PRN (15:05)
[2021-07-12] MEDS ORDERED: Furosemide 40 MG TABLET PO PRN (15:14)
[2021-07-12] MEDS ORDERED: Fluticasone Propionate Nasal 50 MCG/SPRAY BOTTLE NS PRN (15:14)
[2021-07-12] MEDS ORDERED: 0.9 % Sodium Chloride 1,000 ML IVC SCH (15:15)
[2021-07-12] MEDS ORDERED: Ondansetron ODT 4 MG TAB.RAPDIS PO PRN (15:28)
[2021-07-12 18:28] LABS: Adenovirus Not Detected (Not Detect); Bordetella Pertussis Not Detected (Not Detect); Chlamydophila pneumoniae Not Detected (Not Detect); Coronavirus 229E Not Detected (Not Detect); Coronavirus HKU1 Not Detected (Not Detect); Coronavirus NL63 Not Detected (Not Detect); Coronavirus OC43 Not Detected (Not Detect); Human Metapneumovirus Not Detected (Not Detect); Human Rhinovirus/Enterovirus Not Detected (Not Detect); Influenza A Subtype 2009 H1 Not Detected (Not Detect); Influenza B Not Detected (Not Detect); Mycoplasma pneumoniae Not Detected (Not Detect); Parainfluenza Virus 1 Not Detected (Not Detect); Parainfluenza Virus 2 Not Detected (Not Detect); Parainfluenza Virus 3 Not Detected (Not Detect); Parainfluenza Virus 4 Not Detected (Not Detect); Respiratory Syncytial Virus Not Detected (Not Detect); SARS-CoV-2 Not Detected (Not Detect)
[2021-07-12] MEDS: Ondansetron 4 MG/2 ML VIAL IVP PRN (21:35)
[2021-07-13] MEDS: Acetaminophen 325 MG TABLET PO PRN ×3 (03:19→20:55)
[2021-07-13] MEDS: Ondansetron 4 MG/2 ML VIAL IVP PRN (05:59)
[2021-07-13 06:56] LABS: BUN/Creatinine Ratio 42 (6-26); Blood Urea Nitrogen 25 mg/dL (6-20); Calcium 8.8 mg/dL (8.6-10.3); Carbon Dioxide 30 mEq/L (23-29); Chloride 97 mEq/L (98-107); Glucose 122 mg/dL (70-105); Magnesium 1.9 mg/dL (1.6-2.6); Osmolality,Calculated 282 (280-300); Sodium 133 mEq/L (136-145); eGFR For African Americans > 60 (> 60); eGFR For Non-African Americans > 60 (> 60)
[2021-07-13 07:17] LABS: Hematocrit 43.6 % (35.3-44.9); Hemoglobin 12.3 g/dL (11.5-15.4); Mean Corpuscular HGB Conc 28.2 g/dL (31.6-35.5); Mean Corpuscular Hemoglobin 24.2 pg (28.0-33.3); Mean Corpuscular Volume 85.7 fL (83.0-100.0); Mean Platelet Volume 9.7 fL (9.4-12.4); Platelet Count 337 K/mcL (140-400); Red Blood Count 5.09 M/mcL (3.82-4.97); Red Cell Distribution Width 17.3 % (11.5-14.5)
[2021-07-13] MEDS: Cholecalciferol (D-3) 1,000 UNIT (25MCG) TABLET PO SCH (10:35)
[2021-07-13] MEDS: Loratadine 10 MG TABLET PO SCH (10:36)
[2021-07-13] MEDS: Folic Acid 1 MG TABLET PO SCH (10:37)
[2021-07-13] MEDS: Ascorbic Acid 500 MG TABLET PO SCH (10:37)
[2021-07-13] MEDS: Aspirin 325 MG TABLET PO SCH (10:37)
[2021-07-13] MEDS: Potassium Chloride Elixir 20 MEQ/15 ML UDC PO SCH ×2 (10:38→13:13)
[2021-07-13] MEDS: PARoxetine 10 MG TABLET PO SCH (10:38)
[2021-07-13] MEDS ORDERED: 0.9 % Sodium Chloride 1,000 ML IVC SCH (16:00)
[2021-07-14] MEDS ORDERED: Ketorolac 30 MG/ML VIAL IVP ONE ×2 (00:29→06:39)
[2021-07-14] MEDS: 0.9 % Sodium Chloride 1,000 ML IVC SCH ×2 (00:37→10:53)
[2021-07-14] MEDS ORDERED: *HR* Enoxaparin 40 MG/0.4 ML SYRINGE SQ SCH (06:00)
[2021-07-14 06:55] VITALS: BP 150/79; PULSE 70; RESP 18; TEMP 97.8; O2SAT 97
[2021-07-14 07:02] LABS: Hemoglobin 10.6 g/dL (11.5-15.4); Mean Corpuscular HGB Conc 28.6 g/dL (31.6-35.5); Mean Corpuscular Hemoglobin 24.1 pg (28.0-33.3); Mean Corpuscular Volume 84.1 fL (83.0-100.0); Mean Platelet Volume 9.5 fL (9.4-12.4); Platelet Count 289 K/mcL (140-400); Red Cell Distribution Width 17.1 % (11.5-14.5); White Blood Count 7.4 K/mcL (4.3-11.1)
[2021-07-14 07:21] LABS: BUN/Creatinine Ratio 27 (6-26); Blood Urea Nitrogen 12 mg/dL (6-20); Calcium 8.8 mg/dL (8.6-10.3); Carbon Dioxide 31 mEq/L (23-29); Chloride 102 mEq/L (98-107); Glucose 99 mg/dL (70-105); Osmolality,Calculated 284 (280-300); Potassium 4.1 mEq/L (3.5-5.1); Sodium 137 mEq/L (136-145); eGFR For African Americans > 60 (> 60); eGFR For Non-African Americans > 60 (> 60)
[2021-07-14] MEDS: Aspirin 325 MG TABLET PO SCH (08:18)
[2021-07-14] MEDS: PARoxetine 10 MG TABLET PO SCH (08:18)
[2021-07-14] MEDS: Cholecalciferol (D-3) 1,000 UNIT (25MCG) TABLET PO SCH (08:18)
[2021-07-14] MEDS: Ascorbic Acid 500 MG TABLET PO SCH (08:19)
[2021-07-14] MEDS: Folic Acid 1 MG TABLET PO SCH (08:19)
[2021-07-14] MEDS: Loratadine 10 MG TABLET PO SCH (08:19)
[2021-07-14] MEDS: Potassium Chloride Elixir 20 MEQ/15 ML UDC PO SCH (08:24)
[2021-07-14] MEDS ORDERED: *HR* OxyCODONE/APAP 5/325 TABLET PO ONE (14:21)
[2021-07-17] MEDS ORDERED: Fosfomycin Tromethamine 3 GM Packet PO SCH (09:00)
== END 2021-07-14 16:45 | disposition home health service (06) | DRG 144 ==
LOC: INPPIK 11:18 → EMEROOPIK 11:18 → INPPIK 16:52
PROVIDERS: ADMIT Family Medicine; ATTEND Family Medicine